=== PATIENT | female | born 1970 | race Caucasian/White ===

== ENCOUNTER 2017-01-29 16:06 | Emergency (ER) | payer OTHER ==
[2017-01-29 17:21] LABS: BASOPHIL 0.3 % (0-2); EOSINOPHIL 1.3 % (0-5); HCT 42.7 % (37.0-47.0); HGB 14.5 g/dl (12.5-16.0); LYMPHOCYTE 13.2 % (15-48); MCH 28.1 pg (25.0-31.0); MCV 82.8 fL (78.0-100.0); MPV 10.7 fL (6.0-9.5); NEUTROPHIL 79.2 % (41-80); PLT 265 K/uL (150-400); RBC 5.16 M/uL (4.20-5.40); RDW 13.8 % (11.5-14.0)
[2017-01-29 17:22] LABS: WBC 10.4 K/uL (4.0-10.5)
[2017-01-29 17:42] LABS: CREATININE 0.7 mg/dL (0.5-1.0); POTASSIUM 4.6 mmol/L (3.5-5.1)
== END 2017-01-29 18:42 | disposition home or self-care (01) ==
LOC: FER 16:06
PROVIDERS: Nurse Practitioner
DX: J20.9 Acute bronchitis, unspecified (principal); J45.909 Unspecified asthma, uncomplicated; Z88.2 Allergy status to sulfonamides; Z79.51 Long term (current) use of inhaled steroids
CPT/HCPCS: 36415; 71020; 80048; 85025; 85379; 93005; 94640; J1100

== ENCOUNTER 2020-11-20 17:53 | Emergency (ER) | payer OTHER ==
[2020-11-20] MEDS ORDERED: NAPROXEN500 MG PO (19:01)
== END 2020-11-20 19:20 | disposition home or self-care (01) ==
LOC: FER 17:53
DX: S40.022A Contusion of left upper arm, initial encounter (principal); S20.412A Abrasion of left back wall of thorax, initial encounter; M12.812 Other specific arthropathies, not elsewhere classified, left shoulder; E07.9 Disorder of thyroid, unspecified; K21.9 Gastro-esophageal reflux disease without esophagitis; Z79.899 Other long term (current) drug therapy; Z23 Encounter for immunization; Z88.2 Allergy status to sulfonamides; W19.XXXA Unspecified fall, initial encounter; Y92.009 Unspecified place in unspecified non-institutional (private) residence as the place of occurrence of the external cause
CPT/HCPCS: 73030; 73060; 73080; 73090; 73110; 90471; 90715

== ENCOUNTER 2021-10-12 13:26 | Emergency (ER) | payer OTHER ==
[~2021-10-12 13:26] MED LIST: NAPROXEN500 MG PO
[2021-10-12 14:49] LABS: BASOPHIL 0.3 % (0-2); EOSINOPHIL 0.2 % (0-5); HCT 49.5 % (37.0-47.0); HGB 16.2 g/dl (12.5-16.0); LYMPHOCYTE 5.6 % (15-48); MCH 27.3 pg (25.0-31.0); MCHC 32.7 g/dL (32.0-36.0); MCV 83.3 fL (78.0-100.0); MPV 11.2 fL (6.0-9.5); NEUTROPHIL 87.5 % (41-80); NRBC 0; PLT 238 K/uL (150-400); RBC 5.94 M/uL (4.20-5.40); RDW 13.2 % (11.5-14.0)
[2021-10-12 15:15] LABS: BILIRUBIN NEGATIVE (NEGATIVE); BLOOD TRACE-INTACT Ery/uL (NEGATIVE); CLARITY CLEAR (CLEAR); COLOR YELLOW (YELLOW); GLUCOSE (U) NORMAL (NORMAL); LEUKOCYTES NEGATIVE Leu/uL (NEGATIVE); NITRITE NEGATIVE (NEGATIVE); PROTEIN NEGATIVE (NEGATIVE); SPECIFIC GRAVITY >=1.030 (1.001-1.030); UROBILINOGEN 0.2 mg/dL (0.2-1.0); pH 5.5 (5.0-9.0)
[2021-10-12 15:19] LABS: ALBUMIN 3.3 g/dL (3.4-5.0); BILIRUBIN - TOTAL 0.5 mg/dL (0.2-1.0); CREATININE 0.62 mg/dL (0.51-0.95); POTASSIUM 4.2 mmol/L (3.5-5.1); TOTAL PROTEIN 7.3 g/dL (6.4-8.2)
[2021-10-12 15:33] LABS: BACTERIA TRACE; TRANSITIONAL EPITHELIAL CELLS RARE
[2021-10-12 15:34] LABS: MUCOUS TRACE
[2021-10-12] MEDS ORDERED: NORCO 5-325 TA1 EACH PO (17:41)
[2021-10-12] MEDS ORDERED: ONDANSETRON HCL4 MG PO (17:41)
[2021-10-12] MEDS ORDERED: CIPRO500 MG PO (17:41)
[2021-10-12] MEDS ORDERED: METRONIDAZOLE500 MG PO (17:41)
== END 2021-10-12 18:08 | disposition home or self-care (01) ==
LOC: FER 13:26
PROVIDERS: Nurse Practitioner Family
DX: U07.1 COVID-19 (principal); K51.00 Ulcerative (chronic) pancolitis without complications; J45.909 Unspecified asthma, uncomplicated; Z88.2 Allergy status to sulfonamides
CPT/HCPCS: 36415; 80053; 81001; 82150; 82270; 83690; 85025; 87088; 87449; J2270; J2405; J7030; Q9967; U0002